=== PATIENT | female | born 1995 | race Caucasian/White ===

== ENCOUNTER 2017-03-17 12:37 | Emergency (ER) | payer SELFPAY ==
--- NOTE | 2017-03-17 12:49 | Emergency Department Record ---
History of Present Illness - General Chief complaint: ENT Stated complaint: RT EAR PAIN Time Seen by Provider: 03/17/17 12:44 Source: Patient Mode of Arrival: Ambulatory Limitations: No limitations - History of Present Illness Initial comments: 21 yo female presents with right ear pain that started this morning. No other symptoms. She had strep throat about 2-3 weeks ago. No drainage from the ear today. No fevers. No cough. No rash. No nausea or vomiting. No other complaints. No allergies to antibiotics. MD complaint: Ear pain -: Hour(s) Location: R ear Severity: Moderate Quality: Aching Consistency: Constant Improves with: None Worsens with: None Context-Epistaxis: History of similar Context- Ear: Recent illness - Related Data Previous Rx's Medication Instructions Recorded Clindamycin HCl [Cleocin HCl] 300 mg PO QID #28 capsule 03/17/17 Review of Systems Constitutional: Denies: Chills, Fever, Malaise, Weakness Eyes: Denies: Eye discharge, Eye pain, Photophobia, Vision change ENT: Reports: As per HPI, Congestion, Ear pain, Throat pain Respiratory: Denies: Cough, Dyspnea, Wheezes Cardiovascular: Denies: Chest pain, Syncope Endocrine: Denies: Fatigue Gastrointestinal: Denies: Abdominal pain, Diarrhea, Nausea, Vomiting Genitourinary: Denies: Dysuria, Frequency Musculoskeletal: Denies: Arthralgia, Back pain, Myalgia, Neck pain Skin: Denies: Bruising, Change in color, Rash Neurological: Denies: Headache, Numbness, Weakness Psychiatric: Denies: Anxiety Hematological/Lymphatic: Denies: Blood Clots, Easy bleeding, Easy bruising, Swollen glands Physical Exam - General General Appearance: Alert, Oriented x3, Cooperative, No acute distress Limitations: No limitations - Head Head exam: Normal inspection - Eye Eye exam: Normal appearance, PERRL, EOMI. negative: Conjunctival injection, Periorbital swelling, Scleral icterus - ENT ENT exam: Mucous membranes moist, Normal external ear exam, Normal orophraynx. negative: Mucous membranes dry, TM's normal bilaterally (Right TM erythema with retraction, left TM is normal. NO pus or blood on the right) Ear exam: Normal external inspection Nasal Exam: Normal inspection. negative: Discharge, Sinus tenderness Mouth exam: Normal external inspection, Tongue normal Teeth exam: Normal inspection. negative: Dental caries Throat exam: Normal inspection. negative: Tonsillar erythema, Tonsillar exudate - Neck Neck exam: Normal inspection, Full ROM. negative: Lymphadenopathy, Meningismus , Tenderness - Respiratory Respiratory exam: Normal lung sounds bilaterally. negative: Respiratory distress - Cardiovascular Cardiovascular Exam: Regular rate, Normal rhythm, Normal heart sounds - GI/Abdominal GI/Abdominal exam: Soft - Rectal Rectal exam: Deferred - exam: Deferred - Extremities Extremities exam: Normal inspection, Full ROM, Normal capillary refill. negative: Tenderness - Back Back exam: Reports: Normal inspection, Full ROM. Denies: Muscle spasm, Rash noted, Tenderness - Neurological Neurological exam: Alert, Normal gait, Oriented X3 - Psychiatric Psychiatric exam: Normal affect, Normal mood - Skin Skin exam: Dry, Intact, Normal color, Warm Course - Reevaluation(s) Reevaluation #1: 03/17/17 12:47 On examination the patient has ROM. No rupture. 03/17/17 12:49 The patient recently finished Augmentin She will be prescribed Clindamycin Disposition Disposition: Discharge Clinical Impression: Otitis media Qualifiers: Otitis media type: unspecified Chronicity: acute Qualified Code(s): H66.90 - Otitis media, unspecified, unspecified ear Disposition: Home, Self-Care Condition: (1) Good Instructions: Otitis Media (ED) Additional Instructions: Call your doctor for close follow up Return for a recheck if you have any new concerns Prescriptions: Clindamycin HCl [Cleocin HCl] 300 mg PO QID #28 capsule Time of Disposition: 12:49 Quality - Quality Measures Quality Measures: N/A - Blood Pressure Screening Does Patient Have Any of the Following: No Systolic Measurement: ~ Screening for High Blood Pressure: < Pre-Hypertensive BP, F/U Documented > [ G8950] Pre-Hypertensive Follow-up Interventions: Referral to alternative/primary care provider.
== END 2017-03-17 12:53 | disposition home or self-care (01) ==
LOC: ER 12:37
DX: H66.91 Otitis media, unspecified, right ear (principal)
CPT/HCPCS: 99282

== ENCOUNTER 2017-06-08 21:05 | Emergency (ER) | payer SELFPAY ==
--- NOTE | 2017-06-08 21:27 | Emergency Department Record ---
History of Present Illness - General Chief Complaint: Wound, check Stated Complaint: INFECTED INCISION Time Seen by Provider: 06/08/17 21:22 Source: Patient Mode of arrival: Ambulatory Limitations: No limitations - History of Present Illness Initial Comments: 21 yo female presents to ED for evaluation of possible wound infection following laparoscopic hysterectomy performed approximately 1.5 weeks ago. Patient reports mild drainage from the left upper port incision, denies fevers, chills, or urinary symptoms. Patient denies health problems except for ovarian cysts. MD Complaint: Wound re-check Onset/Timin -: Days(s) Initial Visit For: Laceration Symptoms Since Prior Visit: Worsening discharge Associated Symptoms: None - Related Data Previous Rx's Medication Instructions Recorded Clindamycin HCl [Cleocin HCl] 300 mg PO QID #28 capsule 03/17/17 Cephalexin [Keflex] 500 mg PO QID #28 cap 06/08/17 Allergies Allergy/AdvReac Type Severity Reaction Status Date / Time hydromorphone [From Dilaudid] Allergy ITCHING Verified 06/08/17 21:19 Travel Screening - Travel/Exposure Within Last 30 Days Have you traveled within the last 30 days?: No - Travel/Exposure Within Last Year Have you traveled outside the [place] in the last year?: No - Additonal Travel Details Have you been exposed to anyone with a communicable illness?: No - Travel Symptoms Symptom Screening: None Review of Systems Constitutional: Denies: Chills, Fever, Malaise, Night sweats Eyes: Denies: Eye discharge, Eye pain ENT: Denies: Congestion, Ear pain, Epistaxis Respiratory: Denies: Cough, Dyspnea Cardiovascular: Denies: Chest pain, Dyspnea on exertion Endocrine: Denies: Fatigue, Heat or cold intolerance Gastrointestinal: Denies: Abdominal pain, Nausea, Vomiting Genitourinary: Denies: Incontinence, Retention Musculoskeletal: Denies: Arthralgia, Back pain, Gout, Joint swelling Skin: Reports: Other (Drainage from laparoscopic wound incision). Denies: Bruising, Change in color, Change in hair/nails Neurological: Denies: Abnormal gait, Confusion, Headache, Seizure Psychiatric: Denies: Anxiety Hematological/Lymphatic: Denies: Anemia, Blood Clots Past Medical History - SOCIAL HISTORY Smoking Status: Current every day smoker Alcohol Use: Rare Drug Use: None - RESPIRATORY Hx Respiratory Disorders: Yes Hx Asthma: Yes Hx Bronchitis: Yes - CARDIOVASCULAR Hx Cardio Disorders: No - NEURO Hx Neuro Disorders: No - GI Hx GI Disorders: No - Hx Genitourinary Disorders: No - ENDOCRINE Hx Endocrine Disorders: No - MUSCULOSKELETAL Hx Musculoskeletal Disorders: Yes Comment:: scoliosis - PSYCH Hx Psych Problems: Yes Hx Depression: Yes - HEMATOLOGY/ONCOLOGY Hx Hematology/Oncology Disorders: No Family Medical History Any Significant Family History?: No Physical Exam - General General Appearance: Alert, Oriented x3, Cooperative, No acute distress Limitations: No limitations - Head Head exam: Atraumatic, Normocephalic, Normal inspection Head exam detail: negative: Abrasion, Contusion, Santiago's sign, General tenderness, Hematoma, Laceration - Eye Eye exam: Normal appearance. negative: Conjunctival injection, Periorbital swelling, Periorbital tenderness, Scleral icterus - ENT Ear exam: negative: Auricular hematoma, Auricular trauma Nasal Exam: negative: Active bleeding, Discharge, Dried blood, Foreign body Mouth exam: negative: Drooling, Laceration, Tongue elevation - Neck Neck exam: Normal inspection. negative: Meningismus, Tenderness - Respiratory Respiratory exam: Normal lung sounds bilaterally. negative: Rales, Respiratory distress, Rhonchi, Stridor - Cardiovascular Cardiovascular Exam: Regular rate, Normal rhythm, Normal heart sounds - GI/Abdominal GI/Abdominal exam: Soft, Other (No drainge expressed from the associated wound site, no surrounding erythema, no inducration or fluctuance. Abdominal examination is non-tender/benign as well on examination.). negative: Rebound, Rigid, Tenderness - Rectal Rectal exam: Deferred - exam: Deferred - Extremities Extremities exam: Normal inspection. negative: Calf tenderness, Pedal edema, Tenderness - Back Back exam: Denies: CVA tenderness (R), CVA tenderness (L) - Neurological Neurological exam: Alert, Normal gait, Oriented X3 - Psychiatric Psychiatric exam: Normal affect, Normal mood - Skin Skin exam: Normal color. negative: Abrasion Type of lesion: negative: abrasion Course Vital Signs 06/08/17 21:10 Temperature 98.8 F Pulse Rate 86 Respiratory 20 Rate Blood Pressure 146/86 Pulse Ox 96 - Reevaluation(s) Reevaluation #1: 06/08/17 21:30 Case was discussed with Dr. Ayoub, discussed the wound findings present on examination that is more consistent with seroma than post-op wound infection. Will initiate Keflex with instructions for follow-up with Dr. Guerin in 1-3 days for re-evaluation. Disposition Disposition: Discharge Clinical Impression: Postoperative wound seroma Disposition: Home, Self-Care Condition: (2) Stable Instructions: Acute Wound Care (ED) Additional Instructions: Return to ED if your symptoms worsen or if you have any concerns. Follow-up with Dr. Guerin in 1-3 days as directed. Keflex as directed. Prescriptions: Cephalexin [Keflex] 500 mg PO QID #28 cap Forms: Patient Portal Access Time of Disposition: 21:28 Quality - Quality Measures Quality Measures: N/A - Blood Pressure Screening Does Patient Have Any of the Following: No Blood Pressure Classification: Pre-Hypertensive BP Reading Systolic Measurement: 146 Diastolic Measurement: 86 Screening for High Blood Pressure: < Pre-Hypertensive BP, F/U Documented > [ G8950] Pre-Hypertensive Follow-up Interventions: Referral to alternative/primary care provider.
[2017-06-08] MEDS ORDERED: CEPHALEXIN 500 MG CAPSULE PO STA (21:31)
== END 2017-06-08 21:40 | disposition home or self-care (01) ==
LOC: ER 21:05
DX: N99.842 Postprocedural seroma of a genitourinary system organ or structure following a genitourinary system procedure (principal); F17.210 Nicotine dependence, cigarettes, uncomplicated
CPT/HCPCS: 99282

== ENCOUNTER 2018-12-08 15:49 | Emergency (ER) | payer OTHER, MEDICAID ==
[2018-12-08] MEDS ORDERED: 0.9 % SODIUM CHLORIDE 1,000 ML BAG IV ONE (16:00)
[2018-12-08] MEDS ORDERED: ACETAMINOPHEN 1,000 MG/100 ML BTL IVPB ONE (16:04)
--- NOTE | 2018-12-08 16:08 | Emergency Department Record ---
History of Present Illness - General Chief Complaint: Abdominal Pain Stated Complaint: ABD PAIN Time Seen by Provider: 12/08/18 15:52 Source: Patient Mode of Arrival: Ambulatory Limitations: No limitations - History of Present Illness Initial Comments: The patient is here due to sharp stabbing RLQ AP for the last 12 hours. The pain has been getting progressively worse. It worsens with any movement or walking. The patient denies any nausea, vomiting, or dysuria but she has had anorexia and some mild loose watery stools. The patient's only abdominal surgery was a TITO/BSO. She has had kidney stones in the past but they were not quite like this. MD Complaint: Abdominal pain Onset/Timin -: Hour(s) Location: RLQ Radiation: None Migration to: No migration Severity: Moderate Severity scale (1-10): 8 Quality: Dull, Stabbing Consistency: Constant Improves With: Nothing Worsens With: Nothing Associated Symptoms: Diarrhea - Related Data Patient : No Previous Rx's Medication Instructions Recorded Naproxen [Naprosyn] 500 mg PO BID #14 tablet. 12/08/18 Allergies Allergy/AdvReac Type Severity Reaction Status Date / Time hydromorphone [From Dilaudid] Allergy ITCHING Unverified 11/10/18 13:21 Travel Screening - Travel/Exposure Within Last 30 Days Have you traveled within the last 30 days?: No Review of Systems Constitutional: Denies: Chills, Fever Eyes: Denies: Eye discharge ENT: Denies: Congestion Respiratory: Denies: Cough, Dyspnea Cardiovascular: Denies: Arrhythmia Endocrine: Denies: Fatigue Gastrointestinal: Reports: Abdominal pain, Diarrhea. Denies: Nausea, Vomiting Genitourinary: Denies: Dysuria Musculoskeletal: Denies: Arthralgia Skin: Denies: Bruising Past Medical History - SOCIAL HISTORY Smoking Status: Current every day smoker Alcohol Use: Occasional Drug Use: None - RESPIRATORY Hx Respiratory Disorders: Yes Hx Asthma: Yes Hx Bronchitis: Yes - CARDIOVASCULAR Hx Cardio Disorders: No - NEURO Hx Neuro Disorders: No - GI Hx GI Disorders: No - Hx Genitourinary Disorders: No - ENDOCRINE Hx Endocrine Disorders: No - MUSCULOSKELETAL Hx Musculoskeletal Disorders: Yes Comment:: scoliosis - PSYCH Hx Psych Problems: Yes Hx Depression: Yes - HEMATOLOGY/ONCOLOGY Hx Hematology/Oncology Disorders: No Family Medical History Any Significant Family History?: Yes Hx Cancer: Mother Physical Exam - General General Appearance: Alert, Oriented x3, Cooperative, No acute distress - Head Head exam: Atraumatic, Normocephalic, Normal inspection - Eye Eye exam: Normal appearance, PERRL - ENT Throat exam: Normal inspection. negative: Tonsillar erythema, Tonsillar exudate - Neck Neck exam: Normal inspection, Full ROM. negative: Tenderness - Respiratory Respiratory exam: Normal lung sounds bilaterally. negative: Respiratory distress - Cardiovascular Cardiovascular Exam: Regular rate, Normal rhythm, Normal heart sounds - GI/Abdominal GI/Abdominal exam: Soft, Normal bowel sounds, Tenderness (There is significant RLQ tenderness but the abdomen is soft with no guarding or rebound.). negative: Distended, Guarding, Rebound, Rigid - Extremities Extremities exam: Normal inspection, Full ROM, Normal capillary refill. negative: Tenderness Course Vital Signs 12/08/18 15:53 Temperature 99.0 F Pulse Rate 119 H Respiratory 22 Rate Blood Pressure 128/86 Pulse Ox 98 - Reevaluation(s) Reevaluation #1: The patient is doing better at this time. She states the pain is improved and her temp is now 98.5. I did discuss the neg abdominal CT for appendicitis but due to the pain, tenderness and elevated WBC I do feel the patient needs a r echeck tomorrow morning. She is to go home on clear liquids and to return to the ER at 7am for repeat lab work and abdominal examination. The patient understands and will comply. 12/08/18 17:24 Medical Decision Making - Data Complexity MDM Data: Labs Ordered and/or Reviewed, X-Ray Ordered and/or Reviewed - Lab Data Result diagrams: 12/08/18 16:00 12/08/18 16:00 - Radiology Data Radiology results: Report reviewed (CT: Neg APPY, mild ascending colon wall thickening prob indicative of minor inflammation.) Disposition Disposition: Discharge Clinical Impression: Abdominal pain Qualifiers: Abdominal location: right lower quadrant Qualified Code(s): R10.31 - Right lower quadrant pain Disposition: Home, Self-Care Condition: (2) Stable Instructions: Abdominal Pain (ED) Additional Instructions: Please drink plenty of fluids and only eat a liquid diet. Take the Naprosyn for pain and you may also use Tylenol. Return to the ER for recheck at 7am tomorrow. Return sooner for any worsening pain, fever, or vomiting. Prescriptions: Naproxen [Naprosyn] 500 mg PO BID #14 tablet.dr Forms: Patient Portal Access Time of Disposition: 17:27 Quality - Quality Measures Quality Measures: N/A - Blood Pressure Screening View Details: Yes Does Patient Have Any of the Following: No Blood Pressure Classification: Pre-Hypertensive BP Reading Systolic Measurement: 128 Diastolic Measurement: 86 Screening for High Blood Pressure: < Pre-Hypertensive BP, F/U Documented > [G8950] Pre-Hypertensive Follow-up Interventions: Referral to alternative/primary care provider.
[2018-12-08 16:13] LABS: ABSOLUTE NEUTROPHIL COUNT 8.88; BASO % 0.2 % (0-6); EOS % 1.4 % (0-6); GRAN % 64.4 % (47-80); LYMPH % 27.2 % (16-45); MEAN CELL VOLUME 88.1 fl (81-97); MEAN CORPUSCULAR HEMOGLOBIN 28.6 pg (27-33); MEAN CORPUSCULAR HGB CONC 32.5 g/dl (32-36); MEAN PLATELET VOLUME 9.2 fl (7.4-10.4); MONO % 6.8 % (0-9); PLATELET COUNT 320 K/uL (130-400); RED BLOOD COUNT 4.54 M/uL (3.80-5.40); RED CELL DISTRIBUTION WIDTH 12.9 % (11.5-14.5); WHITE BLOOD COUNT W/O DIFF 13.8 K/uL (4.2-12.2)
[2018-12-08 16:17] LABS: URINE APPEARANCE CLEAR; URINE BILIRUBIN NEGATIVE (NEGATIVE); URINE BLOOD NEGATIVE (NEGATIVE); URINE COLOR YELLOW; URINE GLUCOSE (UA) NEGATIVE (NEGATIVE); URINE KETONE NEGATIVE (NEGATIVE); URINE LEUKOCYTE ESTERASE NEGATIVE (NEGATIVE); URINE NITRITE NEGATIVE (NEGATIVE); URINE PROTEIN NEGATIVE (NEGATIVE); URINE UROBILINOGEN 0.2 E.U./dL (0.20 - 1.00)
[2018-12-08 16:23] LABS: BLOOD UREA NITROGEN 11 mg/dL (6-20); CREATININE 0.9 mg/dL (0.5-0.9); EST GLOMERULAR FILTRATION RATE > 60 mL/min
[2018-12-08 16:24] LABS: LIPASE 22 U/L (13-60); TOTAL PROTEIN 7.1 g/dL (6.6-8.7)
[2018-12-08 16:26] LABS: GLUCOSE,RANDOM 109 mg/dL (74-109)
[2018-12-08 16:28] LABS: ALT/SGPT 31 U/L (<33)
[2018-12-08 16:29] LABS: ALBUMIN 4.5 g/dL (4.0-5.0); ALKALINE PHOSPHATASE 80 U/L (35-104); AST/SGOT 20 U/L (10.0-35.0); BILIRUBIN,DIRECT < 0.2 mg/dL (0-0.3)
[2018-12-08] MEDS ORDERED: KETOROLAC 30 MG/ML VIAL IVP ONE (16:43)
--- NOTE | 2018-12-08 17:37 | Emergency Department Record ---
History of Present Illness - General Chief Complaint: Abdominal Pain Stated Complaint: ABD PAIN Time Seen by Provider: 12/08/18 15:52 Source: Patient Mode of Arrival: Ambulatory Limitations: No limitations - History of Present Illness Initial Comments: Additional history, the patient has no vaginal complaints, discharge, or bleeding. Complaint: Abdominal pain Onset/Timin -: Hour(s) Location: RLQ Radiation: None Migration to: No migration Severity: Moderate Severity scale (1-10): 8 Quality: Dull, Stabbing Consistency: Constant Improves With: Nothing Worsens With: Nothing Associated Symptoms: Diarrhea - Related Data Patient : No Previous Rx's Medication Instructions Recorded Naproxen [Naprosyn] 500 mg PO BID #14 tablet. 12/08/18 Allergies Allergy/AdvReac Type Severity Reaction Status Date / Time hydromorphone [From Dilaudid] Allergy ITCHING Unverified 11/10/18 13:21 Travel Screening - Travel/Exposure Within Last 30 Days Have you traveled within the last 30 days?: No Review of Systems Constitutional: Denies: Chills, Fever Eyes: Denies: Eye discharge ENT: Denies: Congestion Respiratory: Denies: Cough, Dyspnea Cardiovascular: Denies: Arrhythmia Endocrine: Denies: Fatigue Gastrointestinal: Reports: Abdominal pain, Diarrhea. Denies: Nausea, Vomiting Genitourinary: Denies: Dysuria Musculoskeletal: Denies: Arthralgia Skin: Denies: Bruising Past Medical History - SOCIAL HISTORY Smoking Status: Current every day smoker Alcohol Use: Occasional Drug Use: None - RESPIRATORY Hx Respiratory Disorders: Yes Hx Asthma: Yes Hx Bronchitis: Yes - CARDIOVASCULAR Hx Cardio Disorders: No - NEURO Hx Neuro Disorders: No - GI Hx GI Disorders: No - Hx Genitourinary Disorders: No - ENDOCRINE Hx Endocrine Disorders: No - MUSCULOSKELETAL Hx Musculoskeletal Disorders: Yes Comment:: scoliosis - PSYCH Hx Psych Problems: Yes Hx Depression: Yes - HEMATOLOGY/ONCOLOGY Hx Hematology/Oncology Disorders: No Family Medical History Any Significant Family History?: Yes Hx Cancer: Mother Physical Exam - General Limitations: No limitations Course Vital Signs 12/08/18 12/08/18 15:53 16:48 Temperature 99.0 F 98.5 F Pulse Rate 119 H Pulse Rate [ 103 H Pulse Ox Probe] Respiratory 22 18 Rate Blood Pressure 128/86 Blood Pressure 141/102 [Left Arm] Pulse Ox 98 97 Medical Decision Making - Lab Data Result diagrams: 12/08/18 16:00 12/08/18 16:00 Lab Results 12/08/18 12/08/18 12/08/18 Range/Units 16:00 16:00 16:15 WBC 13.8 H (4.2-12.2) K/uL RBC 4.54 (3.80-5.40) M/uL Hgb 13.0 (11.6-16.0) gm/dl Hct 40.0 (35.0-47.0) % MCV 88.1 (81-97) fl MCH 28.6 (27-33) pg MCHC 32.5 (32-36) g/dl RDW 12.9 (11.5-14.5) % Plt Count 320 (130-400) K/uL MPV 9.2 (7.4-10.4) fl Gran % 64.4 (47-80) % Lymphocytes % 27.2 (16-45) % Monocytes % 6.8 (0-9) % Eosinophils % 1.4 (0-6) % Basophils % 0.2 (0-6) % Absolute Neutrophils 8.88 Sodium 142 (136-145) mmol/L Potassium 3.5 (3.4-4.5) mmol/L Chloride 103 (98-107) mmol/L Carbon Dioxide 24.0 (22-29) mmol/L Anion Gap 15.0 (7-16) BUN 11 (6-20) mg/dL Creatinine 0.9 (0.5-0.9) mg/dL Estimated GFR > 60 mL/min Random Glucose 109 (74-109) mg/dL Calcium 9.2 (8.6-10.0) mg/dL Total Bilirubin 0.30 (0.2-1.0) mg/dL Direct Bilirubin < 0.2 (0-0.3) mg/dL AST 20 (10.0-35.0) U/L ALT 31 (<33) U/L Alkaline Phosphatase 80 (35-104) U/L Total Protein 7.1 (6.6-8.7) g/dL Albumin 4.5 (4.0-5.0) g/dL Lipase 22 (13-60) U/L Urine Color Yellow Urine Appearance Clear Urine pH 5.5 (5.0-8.0) Ur Specific [place] 1.025 (1.002-1.030) Urine Protein Negative (NEGATIVE) Urine Glucose (UA) Negative (NEGATIVE) Urine Ketones Negative (NEGATIVE) Urine Blood Negative (NEGATIVE) Urine Nitrite Negative (NEGATIVE) Urine Bilirubin Negative (NEGATIVE) Urine Urobilinogen 0.2 (0.20 - 1.00) E.U./dL Ur Leukocyte Esterase Negative (NEGATIVE) Disposition Clinical Impression: Abdominal pain Qualifiers: Abdominal location: right lower quadrant Qualified Code(s): R10.31 - Right lower quadrant pain Disposition: Home, Self-Care Condition: (2) Stable Instructions: Abdominal Pain (ED) Additional Instructions: Please drink plenty of fluids and only eat a liquid diet. Take the Naprosyn for pain and you may also use Tylenol. Return to the ER for recheck at 7am tomorrow. Return sooner for any worsening pain, fever, or vomiting. Prescriptions: Naproxen [Naprosyn] 500 mg PO BID #14 tablet.dr Forms: Patient Portal Access Quality - Quality Measures Quality Measures: N/A - Blood Pressure Screening View Details: Yes Does Patient Have Any of the Following: No Blood Pressure Classification: Pre-Hypertensive BP Reading Systolic Measurement: 128 Diastolic Measurement: 86 Screening for High Blood Pressure: < Pre-Hypertensive BP, F/U Documented > [G8950] Pre-Hypertensive Follow-up Interventions: Referral to alternative/primary care provider.
--- NOTE | 2018-12-09 17:59 | CT SCAN REPORT ---
EXAM: CT SCAN ABDOMEN/PELVIS WO CONTRAST HISTORY: RIGHT-SIDED ABDOMINAL PAIN WITH LOW-GRADE FEVER AND DIARRHEA. RIGHT LOWER QUADRANT PAIN. TECHNIQUE: Standard CT imaging of the abdomen and pelvis was performed without contrast. COMPARISON: Previous pelvic ultrasound dated May 21, 2018. There are no prior CT studies for comparison. FINDINGS: The lung bases are clear. The unenhanced liver parenchyma appears normal. Calcified stone is present within the gallbladder. There is no evidence for acute cholecystitis. There is no biliary ductal dilatation. The pancreas, spleen, and adrenal glands are normal. The kidneys and ureters are unremarkable. There is no urinary tract calculus or obstructive uropathy. The aorta is normal in caliber. There is no retroperitoneal lymphadenopathy. The appendix is upper-normal in diameter measuring 7 mm. There are no surrounding inflammatory changes. There is no evidence for acute appendicitis. There is minor wall thickening of the ascending colon suggesting developing colitis. The remainder of the colon is normal. The small bowel loops are normal in caliber. There is no pneumoperitoneum or ascites. The uterus is surgically absent. There is no adnexal mass or free fluid. The urinary bladder is normal. Degenerative changes are present within the spine. IMPRESSION: 1. UPPER-NORMAL APPENDIX MEASURING 7 MM IN DIAMETER. THERE ARE NO SURROUNDING INFLAMMATORY CHANGES. THERE IS NO CT EVIDENCE FOR ACUTE APPENDICITIS. 2. MINOR WALL THICKENING OF THE ASCENDING COLON SUGGESTING DEVELOPING COLITIS. 3. CHOLELITHIASIS WITH NO EVIDENCE FOR ACUTE CHOLECYSTITIS. JOB NUMBER: [id number] MTDD
== END 2018-12-08 17:43 | disposition home or self-care (01) ==
LOC: ER 15:49
DX: R10.31 Right lower quadrant pain (principal); R19.7 Diarrhea, unspecified; F17.210 Nicotine dependence, cigarettes, uncomplicated
CPT/HCPCS: 74176; 80048; 80076; 81003; 83690; 85025; 96365; 96375; 99284; 99285; J1885; J7030

== ENCOUNTER 2018-12-09 07:35 | Emergency (ER) | payer OTHER, MEDICAID ==
[~2018-12-09 07:35] MED LIST: SCOPOLAMINE 1 PATCH TDSY TD ONE
[2018-12-09] MEDS ORDERED: ESMOLOL HCL 100 MG/10 ML ML IVP ONE (07:36)
[2018-12-09] MEDS ORDERED: DEXAMETHASONE 4 MG/ML 1ML VIAL IVP ONE (07:36)
[2018-12-09] MEDS ORDERED: MIDAZOLAM HCL 2MG/2ML VIAL IV ONE (07:36)
[2018-12-09] MEDS ORDERED: METOPROLOL TART 5 MG/5 ML VIAL IV ONE (07:36)
[2018-12-09] MEDS ORDERED: LIDOCAINE 2% MDV (20MG/ML) 20ML VIAL IV ONE (07:36)
[2018-12-09] MEDS ORDERED: KETAMINE HCL 100MG/1ML VIAL INJ ONE (07:36)
[2018-12-09] MEDS ORDERED: ONDANSETRON HCL IV 4 MG/2 ML VIAL IVP ONE ×2 (07:36→07:50)
[2018-12-09] MEDS ORDERED: GLYCOPYRROLATE 0.2 MG/ML ML IV ONE (07:36)
[2018-12-09] MEDS ORDERED: PROPOFOL 10 MG/ML VIAL IV ONE (07:36)
[2018-12-09] MEDS ORDERED: SEVOFLURANE 250 ML INH ONE (07:36)
[2018-12-09] MEDS ORDERED: KETOROLAC 30 MG/ML VIAL IVP ONE ×2 (07:36→07:50)
[2018-12-09] MEDS ORDERED: MEPERIDINE PCA 10 MG/ML VIAL IV ONE (07:36)
[2018-12-09] MEDS ORDERED: FENTANYL PF 100MCG/2ML VIAL IV ONE (07:36)
--- NOTE | 2018-12-09 07:49 | Emergency Department Record ---
History of Present Illness - General Stated Complaint: ABD PAIN RECHECK Time Seen by Provider: 12/09/18 07:40 Source: Patient Mode of Arrival: Ambulatory Limitations: No limitations - History of Present Illness Initial Comments: 23 yo female presents with abdominal pain. She was seen yesterday in the ED by Dr Andrade and asked to return in 12 hours for a recheck. She reports the pain initially began at 4am yesterday. It gradually has worsened in the RLQ. She had about 2 loose stools yesterday with the last stool occurring at 3pm. She was seen in the ED yesterday. Labs and CT performed. Appendix was upper limits of normal without inflammation. Possible early colitis was noted on CT. She reports the pain is still RLQ and worsening. No appetite. Prior hysterectomy and oopherectomy MD Complaint: Abdominal pain -: Hour(s) (27) Location: RLQ Radiation: RLQ Migration to: RLQ Severity: Moderate, Severe Quality: Sharp Consistency: Constant Improves With: Other (Remaining still) Worsens With: Eating, Movement Associated Symptoms: Anorexia - Related Data Previous Rx's Medication Instructions Recorded Naproxen [Naprosyn] 500 mg PO BID #14 tablet. 12/08/18 Allergies Allergy/AdvReac Type Severity Reaction Status Date / Time hydromorphone [From Dilaudid] Allergy ITCHING Unverified 11/10/18 13:21 Past Medical History - SOCIAL HISTORY Smoking Status: Current every day smoker Drug Use: None - RESPIRATORY Hx Respiratory Disorders: Yes Hx Asthma: Yes Hx Bronchitis: Yes - CARDIOVASCULAR Hx Cardio Disorders: No - NEURO Hx Neuro Disorders: No - GI Hx GI Disorders: No - Hx Genitourinary Disorders: No - ENDOCRINE Hx Endocrine Disorders: No - MUSCULOSKELETAL Hx Musculoskeletal Disorders: Yes Comment:: scoliosis - PSYCH Hx Psych Problems: Yes Hx Depression: Yes - HEMATOLOGY/ONCOLOGY Hx Hematology/Oncology Disorders: No Family Medical History Hx Cancer: Mother Course - Reevaluation(s) Reevaluation #1: The patient states she is worse. She has guarding in the RLQ. Given she is worsening I recommend re-CT scan. She understands and is in agreement. 12/09/18 08:28 The labs were reviewed. No acute abnormalities 12/09/18 10:[address] was negative for appendicitis, no colitis, 1.7cm gall stone The patient still has significant pain. General Surgery will be paged to review the case 12/09/18 11:26 Given the persistent pain and the findings of only the large gall stone Dr Haley plans of OR at 2:30 The patient is in agreement with the plan Medical Decision Making - Lab Data Result diagrams: 12/09/18 07:55 12/09/18 07:55 Disposition Disposition: Discharge Clinical Impression: Abdominal pain Qualifiers: Abdominal location: right lower quadrant Qualified Code(s): R10.31 - Right lower quadrant pain Gall stone Qualifiers: Cholecystitis presence: with cholecystitis Cholecystitis acuity: acute Biliary obstruction: without biliary obstruction Qualified Code(s): K80.00 - Calculus of gallbladder with acute cholecystitis without obstruction Condition: (1) Good Additional Instructions: DC to outpatient surgery Time of Disposition: 11:27 Quality - Quality Measures Quality Measures: N/A - Blood Pressure Screening Does Patient Have Any of the Following: No Blood Pressure Classification: Pre-Hypertensive BP Reading Systolic Measurement: 132 Diastolic Measurement: 87 Screening for High Blood Pressure: < Pre-Hypertensive BP, F/U Documented > [G8950] Pre-Hypertensive Follow-up Interventions: Referral to alternative/primary care provider.
[2018-12-09] MEDS ORDERED: ACETAMINOPHEN 1,000 MG/100 ML BTL IVPB ONE (07:50)
[2018-12-09] MEDS ORDERED: 0.9 % SODIUM CHLORIDE 1,000 ML BAG IV ONE (07:50)
[2018-12-09 08:07] LABS: ABSOLUTE NEUTROPHIL COUNT 3.11; BASO % 0.3 % (0-6); EOS % 2.9 % (0-6); GRAN % 42.8 % (47-80); HEMATOCRIT 41.3 % (35.0-47.0); HEMOGLOBIN 13.5 gm/dl (11.6-16.0); LYMPH % 41.5 % (16-45); MEAN CELL VOLUME 88.4 fl (81-97); MEAN CORPUSCULAR HEMOGLOBIN 28.9 pg (27-33); MEAN CORPUSCULAR HGB CONC 32.7 g/dl (32-36); MEAN PLATELET VOLUME 9.1 fl (7.4-10.4); MONO % 12.5 % (0-9); PLATELET COUNT 273 K/uL (130-400); RED BLOOD COUNT 4.67 M/uL (3.80-5.40); RED CELL DISTRIBUTION WIDTH 12.8 % (11.5-14.5); WHITE BLOOD COUNT W/O DIFF 7.3 K/uL (4.2-12.2)
[2018-12-09 08:13] LABS: BLOOD UREA NITROGEN 10 mg/dL (6-20); CREATININE 0.6 mg/dL (0.5-0.9); EST GLOMERULAR FILTRATION RATE > 60 mL/min
[2018-12-09 08:14] LABS: LIPASE 25 U/L (13-60); TOTAL PROTEIN 6.6 g/dL (6.6-8.7)
[2018-12-09 08:16] LABS: GLUCOSE,RANDOM 99 mg/dL (74-109)
[2018-12-09 08:18] LABS: ALB/GLOB RATIO 1.5 (1.1-1.8); ALT/SGPT 26 U/L (<33); AST/SGOT 17 U/L (10.0-35.0)
[2018-12-09 08:19] LABS: ALKALINE PHOSPHATASE 74 U/L (35-104)
[2018-12-09] MEDS ORDERED: 0.9 % SODIUM CHLORIDE 1000ML 1,000 ML IV ONE ×3 (10:44→13:04)
[2018-12-09] MEDS ORDERED: ERTAPENEM SODIUM 1 G in 0.9 % SODIUM CHLORIDE 100ML 100 ML IVPB ONE (11:25)
[2018-12-09] MEDS ORDERED: BUPIVACAINE 0.25% W/EPI MPF 30ML VIAL SQ ONE (14:26)
[2018-12-09] MEDS ORDERED: OXYCODONE/APAP 10MG-325MG TABLET PO ONE (15:36)
--- NOTE | 2018-12-10 07:12 | CT SCAN REPORT ---
EXAM: CT OF THE ABDOMEN AND PELVIS WITH IV CONTRAST HISTORY: THIS IS A 23-YEAR-OLD FEMALE WITH RIGHT LOWER QUADRANT PAIN FOR THIRTY HOURS. HISTORY OF , HYSTERECTOMY, AND OOPHORECTOMY. TECHNIQUE: CT of the abdomen and pelvis was obtained utilizing 95 ml of Omnipaque 300 IV contrast and 15 ml of oral contrast. Comparison: None. FINDINGS: The lung bases are clear, no consolidation or pleural effusion. The heart is normal in size. There is a 1.7 cm cholelithiasis present, the gallbladder is nondistended. No suspicious inflammatory changes. The liver, spleen, adrenals, kidneys and pancreas appear within normal limits. The bowels appear within normal limits. The appendix is visualized and appears normal in size. No inflammatory changes. No evidence fo colitis or small bowel obstruction. The aorta and retroperitoneum appear within normal limits. No suspicious pneumoperitoneum or significant free fluid. Post surgical changes of the pelvis are present. The urinary bladder is unremarkable. The osseous structures appear intact. IMPRESSION: 1. 1.7 CM CHOLELITHIASIS, NO INFLAMMATORY CHANGES. 2. NO ACUTE INTRAABDOMINAL PATHOLOGIC PROCESS IDENTIFIED. NO EVIDENCE OF ACUTE APPENDICITIS, COLITIS OR OTHER INFLAMMATORY CHANGES. JOB NUMBER: [id number] [facility]
--- NOTE | 2018-12-10 14:51 | Operative Note ---
DATE OF SURGERY: 12/09/2018 SURGEON: Gilbert Haley DO PREOPERATIVE DIAGNOSIS: Cholelithiasis with chronic cholecystitis. OPERATION: Laparoscopic cholecystectomy. INDICATION: The patient is a 23-year-old female who has been to the ER twice in the last 2 days for right-sided pain. CT scans were done on both days. Her appendix was normal; however, she had large calculi in her gallbladder with right upper quadrant pain. She relates a history of recurrent biliary colic. We did discuss cholecystectomy versus medical management. She desired surgical intervention. Risks include but are not limited to bleeding, infection, ductal injury, possible conversion to open, postoperative bile leak, hernia formation. The patient is morbidly obese and we did discuss increased complications that ran along with this as well. PROCEDURE: Thereafter, consent was signed and questions answered. She was taken to the operating room and placed in a supine position. General anesthesia was administered per the department of anesthesia. The patient's abdomen was prepped and draped in the usual sterile fashion. The infraumbilical region was anesthetized with a total of 5 mL of 0.25% Sensorcaine with epinephrine. A 3 cm infraumbilical incision was made. This was carried down to the anterior rectus fascia. This was incised. Erasmo clamps were placed on the fascial edges and brought up into the wound. Stay sutures of 0 Vicryl were placed. Posterior rectus sheath was identified and incised. The peritoneal cavity was entered bluntly. At this time, a 10 mm blunt Romeo port was placed. Adequate pneumoperitoneum was established. Under direct visualization, additional 5 mm epigastric and two 5 mm right subcostal ports were placed. The patient was rotated into steep reverse Trendelenburg with rotation to left. General exam was done. The patient did look like she has right-sided diverticulosis. The appendix appeared normal. The gallbladder was then retracted in a cephalad and lateral direction. I had some difficulty with visualization secondary to patient's morbid obesity and severe fatty infiltration of her liver. Further retraction did allow exposure of the triangle of Calot. The hepatocystic triangle was thoroughly dissected out. There was no aberrant anatomy, no posterior ductal structures. The cystic duct and cystic artery were clearly identified. The distal half of the gallbladder was relased from the cystic plate elongating our retroductal window. Each one was doubly clipped and cut in a standard fashion. Gallbladder was then taken off the liver bed with FELECIA Harmonic. This was placed in an EndoCatch bag and brought out through the umbilical port. Right upper quadrant was rechecked and found to be hemostatic. No bleeding. No bile leaking. No bowel injury noted. The patient was leveled out. The pneumoperitoneum was released. All ports were removed. The fascia was closed with 0 Vicryl in a [id number] fashion. Two sutures were placed. All 4 ports sites were closed with 4-0 Vicryl. The patient was taken to the recovery room in stable condition. FINDINGS AT THE TIME OF SURGERY: Chronic cholecystitis. MTDD
== END 2018-12-09 16:19 | disposition home or self-care (01) ==
LOC: ER 07:35
DX: K80.10 Calculus of gallbladder with chronic cholecystitis without obstruction (principal); R11.0 Nausea; K21.9 Gastro-esophageal reflux disease without esophagitis; E66.01 Morbid (severe) obesity due to excess calories; J45.909 Unspecified asthma, uncomplicated; M41.9 Scoliosis, unspecified; F17.210 Nicotine dependence, cigarettes, uncomplicated
CPT/HCPCS: 74177; 80053; 83690; 85025; 96361; 96365; 96366; 96375; 99285; J1885; J2175; J2405; J3490; J7030

== ENCOUNTER 2019-01-09 07:52 | Emergency (ER) | payer OTHER, MEDICAID ==
[2019-01-09 09:10] LABS: ABSOLUTE NEUTROPHIL COUNT 5.28; BASO % 0.1 % (0-6); EOS % 1.2 % (0-6); GRAN % 62.3 % (47-80); HEMATOCRIT 40.7 % (35.0-47.0); LYMPH % 24.4 % (16-45); MEAN CELL VOLUME 88.1 fl (81-97); MEAN CORPUSCULAR HEMOGLOBIN 28.1 pg (27-33); MEAN CORPUSCULAR HGB CONC 31.9 g/dl (32-36); MEAN PLATELET VOLUME 8.6 fl (7.4-10.4); PLATELET COUNT 259 K/uL (130-400); RED BLOOD COUNT 4.62 M/uL (3.80-5.40); RED CELL DISTRIBUTION WIDTH 12.7 % (11.5-14.5); URINE APPEARANCE CLEAR; URINE BILIRUBIN NEGATIVE (NEGATIVE); URINE BLOOD NEGATIVE (NEGATIVE); URINE COLOR YELLOW; URINE GLUCOSE (UA) NEGATIVE (NEGATIVE); URINE KETONE TRACE (NEGATIVE); URINE LEUKOCYTE ESTERASE NEGATIVE (NEGATIVE); URINE NITRITE NEGATIVE (NEGATIVE); URINE PROTEIN NEGATIVE (NEGATIVE); URINE UROBILINOGEN 0.2 E.U./dL (0.20 - 1.00); WHITE BLOOD COUNT W/O DIFF 8.5 K/uL (4.2-12.2)
[2019-01-09 09:24] LABS: BLOOD UREA NITROGEN 8 mg/dL (6-20); CREATININE 0.6 mg/dL (0.5-0.9); EST GLOMERULAR FILTRATION RATE > 60 mL/min
[2019-01-09 09:25] LABS: TOTAL PROTEIN 6.4 g/dL (6.6-8.7)
[2019-01-09 09:27] LABS: GLUCOSE,RANDOM 91 mg/dL (74-109)
[2019-01-09 09:29] LABS: ALT/SGPT 221 U/L (<33)
[2019-01-09 09:30] LABS: ALB/GLOB RATIO 1.7 (1.1-1.8); ALKALINE PHOSPHATASE 119 U/L (35-104); AST/SGOT 177 U/L (10.0-35.0)
[2019-01-09] MEDS ORDERED: ONDANSETRON HCL IV 4 MG/2 ML VIAL IVP ONE (09:50)
[2019-01-09] MEDS ORDERED: MORPHINE SULFATE 5 MG/ML VIAL IVP ONE ×2 (09:50→12:19)
--- NOTE | 2019-01-09 11:19 | Emergency Department Record ---
History of Present Illness - General Chief Complaint: Recheck - Other Stated Complaint: RECHECK ABD PAIN Time Seen by Provider: 01/09/19 08:27 Source: Patient Mode of arrival: Ambulatory Limitations: No limitations - History of Present Illness Initial Comments: pt here for recheck of ap. she had a neg ct 8hrs ago but had elevated wbcs. her pain is no better and is worse in rlq. she has nausea but no v/c/d MD Complaint: Other Onset/Timin -: Days(s) Initial Visit For: Other Returns Today for: Persistent/worsening pain related to initial visit, Other Symptoms Since Prior Visit: No new symptoms Associated Symptoms: Abdominal pain Treatments Prior to Arrival: Given pain medications on initial visit - Related Data Previous Rx's Medication Instructions Recorded Naproxen [Naprosyn] 500 mg PO BID #14 tablet. 12/08/18 Allergies Allergy/AdvReac Type Severity Reaction Status Date / Time hydromorphone [From Dilaudid] Allergy ITCHING Verified 01/08/19 19:05 Travel Screening - Travel/Exposure Within Last 30 Days Have you traveled within the last 30 days?: No Review of Systems Reviewed: No additional complaints except as noted below Constitutional: Reports: As per HPI. Denies: Chills, Fever, Malaise, Night sweats, Weakness, Weight change Eyes: Reports: As per HPI. Denies: Eye discharge, Eye pain, Photophobia, Vision change ENT: Reports: As per HPI. Denies: Congestion, Dental pain, Ear pain, Epistaxis, Hearing loss, Throat pain Respiratory: Reports: As per HPI. Denies: Cough, Dyspnea, Hemoptysis, Stridor, Wheezes Cardiovascular: Reports: As per HPI. Denies: Arrhythmia, Chest pain, Dyspnea on exertion, Edema, Murmurs, Orthopnea, Palpitations, Paroxysmal nocturnal dyspnea, Rheumatic Fever, Syncope Endocrine: Reports: As per HPI. Denies: Fatigue, Heat or cold intolerance, Polydipsia, Polyuria Gastrointestinal: Reports: As per HPI, Abdominal pain, Nausea. Denies: Constipation, Diarrhea, Hematemesis, Hematochezia, Melena, Vomiting Genitourinary: Reports: As per HPI. Denies: Abnormal menses, Discharge, Dyspareunia, Dysuria, Frequency, Hematuria, Incontinence, Retention, Urgency Musculoskeletal: Reports: As per HPI. Denies: Arthralgia, Back pain, Gout, Joint swelling, Myalgia, Neck pain Skin: Reports: As per HPI. Denies: Bruising, Change in color, Change in hair/nails, Lesions, Pruritus, Rash Neurological: Reports: As per HPI. Denies: Abnormal gait, Confusion, Headache, Numbness, Paresthesias, Seizure, Tingling, Tremors, Vertigo, Weakness Psychiatric: Reports: As per HPI. Denies: Anxiety, Auditory hallucinations, Depression, Homicidal thoughts, Suicidal thoughts, Visual hallucinations Hematological/Lymphatic: Reports: As per HPI. Denies: Anemia, Blood Clots, Easy bleeding, Easy bruising, Swollen glands Past Medical History - SOCIAL HISTORY Smoking Status: Current every day smoker - RESPIRATORY Hx Respiratory Disorders: Yes Hx Asthma: Yes Hx Bronchitis: Yes - CARDIOVASCULAR Hx Cardio Disorders: No - NEURO Hx Neuro Disorders: No - GI Hx GI Disorders: No Hx Abdominal Pain: Yes Hx Reflux: Yes Hx Nausea/Vomiting: Yes - Hx Genitourinary Disorders: No Hx Bladder Problem: Yes (HAS A STITCH HOLDING HER BLADDER UP) Hx UTI: Yes Comment:: S/P HYST - ENDOCRINE Hx Endocrine Disorders: No - MUSCULOSKELETAL Hx Musculoskeletal Disorders: Yes Comment:: scoliosis - PSYCH Hx Psych Problems: Yes Hx Depression: Yes - HEMATOLOGY/ONCOLOGY Hx Hematology/Oncology Disorders: No Family Medical History Any Significant Family History?: Yes Hx Cancer: Mother Physical Exam - General General Appearance: Alert, Oriented x3, Cooperative, Mild distress - Head Head exam: Normal inspection - Eye Eye exam: Normal appearance, PERRL, EOMI Pupils: Normal accommodation - ENT ENT exam: Normal exam, Mucous membranes moist, Normal external ear exam, Normal orophraynx Ear exam: Normal external inspection. negative: External canal tenderness Nasal Exam: Normal inspection. negative: Discharge, Sinus tenderness Mouth exam: Normal external inspection, Tongue normal Teeth exam: Normal inspection. negative: Dental caries Throat exam: Normal inspection. negative: Tonsillar erythema, Tonsillar exudate - Neck Neck exam: Normal inspection, Full ROM. negative: Tenderness - Respiratory Respiratory exam: Normal lung sounds bilaterally. negative: Respiratory distress - Cardiovascular Cardiovascular Exam: Regular rate, Normal rhythm, Normal heart sounds - GI/Abdominal GI/Abdominal exam: Soft, Normal bowel sounds, Tenderness - Rectal Rectal exam: Deferred - exam: Deferred - Extremities Extremities exam: Normal inspection, Full ROM, Normal capillary refill. negati ve: Tenderness - Back Back exam: Reports: Normal inspection, Full ROM. Denies: Muscle spasm, Rash noted, Tenderness - Neurological Neurological exam: Alert, CN II-XII intact, Normal gait, Oriented X3 - Psychiatric Psychiatric exam: Normal affect, Normal mood - Skin Skin exam: Dry, Intact, Normal color, Warm Course Vital Signs 01/09/19 07:59 Temperature 98.7 F Pulse Rate [ 92 H Pulse Ox Probe] Respiratory 16 Rate Blood Pressure 119/68 [Left Arm] Pulse Ox 97 - Reevaluation(s) Reevaluation #1: 01/09/19 12:13 pts us neg except enlarged common hepatic duct. pts pain continues. pts liver enzymes have increased 8-10 fold in 9 hours Medical Decision Making - Lab Data Result diagrams: 01/09/19 09:07 01/09/19 09:07 Lab Results 01/09/19 01/09/19 01/09/19 Range/Units 09:07 09:07 09:07 WBC 8.5 (4.2-12.2) K/uL RBC 4.62 (3.80-5.40) M/uL Hgb 13.0 (11.6-16.0) gm/dl Hct 40.7 (35.0-47.0) % MCV 88.1 (81-97) fl MCH 28.1 (27-33) pg MCHC 31.9 L (32-36) g/dl RDW 12.7 (11.5-14.5) % Plt Count 259 (130-400) K/uL MPV 8.6 (7.4-10.4) fl Gran % 62.3 (47-80) % Lymphocytes % 24.4 (16-45) % Monocytes % 12.0 H (0-9) % Eosinophils % 1.2 (0-6) % Basophils % 0.1 (0-6) % Absolute Neutrophils 5.28 Sodium 142 (136-145) mmol/L Potassium 3.8 (3.4-4.5) mmol/L Chloride 104 (98-107) mmol/L Carbon Dioxide 27.0 (22-29) mmol/L Anion Gap 11.0 (7-16) BUN 8 (6-20) mg/dL Creatinine 0.6 (0.5-0.9) mg/dL Estimated GFR > 60 mL/min Random Glucose 91 (74-109) mg/dL Calcium 8.9 (8.6-10.0) mg/dL Total Bilirubin 0.90 (0.2-1.0) mg/dL AST 177 H (10.0-35.0) U/L ALT 221 H (<33) U/L Alkaline Phosphatase 119 H (35-104) U/L Total Protein 6.4 L (6.6-8.7) g/dL Albumin 4.0 (4.0-5.0) g/dL Globulin 2.4 (1.4-4.8) gm/dL Albumin/Globulin Ratio 1.7 (1.1-1.8) Urine Color Yellow Urine Appearance Clear Urine pH 6.0 (5.0-8.0) Ur Specific Roslyn 1.010 (1.002-1.030) Urine Protein Negative (NEGATIVE) Urine Glucose (UA) Negative (NEGATIVE) Urine Ketones Trace H (NEGATIVE) Urine Blood Negative (NEGATIVE) Urine Nitrite Negative (NEGATIVE) Urine Bilirubin Negative (NEGATIVE) Urine Urobilinogen 0.2 (0.20 - 1.00) E.U./dL Ur Leukocyte Esterase Negative (NEGATIVE) Disposition Disposition: Transfer Clinical Impression: Elevated liver enzymes Abdominal pain Qualifiers: Abdominal location: right lower quadrant Qualified Code(s): R10.31 - Right lower quadrant pain Disposition: Acute Care Hospital Transfer Transfer To: [facility] Reason For Transfer: needs gi, surgery consults Accepting Physician: dr lopez Time Discussed w/Accepting Physician: 12:13 Forms: Patient Portal Access Quality - Quality Measures Quality Measures: N/A - Blood Pressure Screening Does Patient Have Any of the Following: No Blood Pressure Classification: Normal BP Reading Systolic Measurement: 119 Diastolic Measurement: 68 Screening for High Blood Pressure: < Normal BP, F/U Not Required > [G8783]
--- NOTE | 2019-01-12 09:54 | ULTRASOUND REPORT ---
EXAM: ULTRASOUND OF THE ABDOMEN, LIMITED HISTORY: RIGHT LOWER QUADRANT ABDOMINAL PAIN. ABNORMAL LIVER FUNCTION. TECHNIQUE: Routine ultrasound examination of the right upper abdomen was performed. Comparison: CT of the abdomen with contrast dated 01/08/19 at 20:16. FINDINGS: The pancreatic tail is obscured by overlying bowel gas. The remainder of the pancreas is visualized and normal in appearance. The intrahepatic IVC is patent. The liver is mildly echogenic and coarsened in echotexture throughout. This is most commonly seen with steatosis. No hepatic mass. No intrahepatic biliary ductal dilatation is identified. The common hepatic duct diameter is 7 mm and is mildly prominent though this likely relates to a physiologic response to surgical absence of the gallbladder. Screening evaluation of the kidneys does not demonstrate hydronephrosis nor mass. It measures 11 cm in length. IMPRESSION: 1. THE LIVER IS MILDLY ECHOGENIC AND COARSENED IN ECHOTEXTURE THROUGHOUT CONSISTENT WITH STEATOSIS. 2. STATUS POST CHOLECYSTECTOMY. MINOR PROMINENCE OF THE COMMON HEPATIC DUCT WITHOUT INTRAHEPATIC BILIARY DUCTAL DILATATION LIKELY RELATING TO A PHYSIOLOGIC RESPONSE TO SURGICAL ABSENCE OF THE GALLBLADDER. JOB NUMBER: [id number] [facility]
== END 2019-01-09 13:22 | disposition short-term general hospital (02) ==
LOC: ER 07:52
DX: R10.31 Right lower quadrant pain (principal); R94.5 Abnormal results of liver function studies; D72.829 Elevated white blood cell count, unspecified; R11.0 Nausea
CPT/HCPCS: 76705; 80053; 81003; 85025; 96374; 96375; 96376; 99285; J2405